=== PATIENT | male | born 1975 | race Caucasian/White ===

== ENCOUNTER 2022-02-21 17:24 | Emergency (ER) | payer BC ==
[2022-02-21 18:11] LABS: #Eosinphils 0.2 thou/uL (0.0-0.7); #Lymphocytes 0.5 thou/uL (1.20-3.40); #Monocytes 0.8 thou/uL (0.11-0.59); #Neutrophils 4.7 thou/uL (1.40-6.50); %Basophils 0.6 % (0.0-1.0); %Eosinophils 3.6 % (0.0-10.0); %Lymphocytes 8.2 % (21.0-51.0); %Neutrophils 74.6 % (42.0-75.0); Hemoglobin 15.6 g/dL (14.0-18.0); Mean Corpuscular HGB CONC 34.4 g/dL (32.0-36.0); Mean Corpuscular Hemoglobin 29.8 pg (27.0-31.0); Mean Corpuscular Volume 86.8 fl (78.0-98.0); Mean Platelet Volume 6.8 fL (7.4-10.4); Platelet Count 206 10x3/uL (130-400); RBC Distribution Width 12.9 % (11.5-14.5); Red Blood Cell (RBC) Count 5.22 mill/uL (4.70-6.10); White Blood Cell (WBC) Count 6.3 10x3/uL (4.8-10.8)
[2022-02-21] MEDS ORDERED: Ibuprofen 800 MG TAB ONE (18:31)
[2022-02-21 18:32] LABS: ALT (SGPT) 25 U/L (8-55); AST (SGOT) 22 U/L (5-34); Albumin 4.4 g/dL (3.5-5.0); Alkaline Phosphatase 62 U/L (40-110); Anion Gap 15 mmol/L (10-20); BUN (Urea Nitrogen) 12 mg/dL (8.9-20.6); Bilirubin, Total 0.3 mg/dL (0.2-1.2); Calc. Creatinine Clearance 0 mL/min (70-130); Calcium 9.6 mg/dL (7.8-10.44); Carbon Dioxide 23 mmol/L (22-29); Chloride 103 mmol/L (98-107); Estimated GFR 60; Globulin 2.9 g/dL (2.4-3.5); Glucose 136 mg/dL (70-105); Protein, Total 7.3 g/dL (6.0-8.3); Sodium 137 mmol/L (136-145)
[2022-02-21 22:11] LABS: SARS-CoV-2 NAA Rapid Test Not Detected (NotDetected)
[2022-02-21 22:12] LABS: Actual Bicarbonate (HCO3a) 21.5 mEq/L (22-28); Analyzer IN Cardio ER; Base Excess (BEa) -1.7 mEq/L (-2.0 to +3.0); CO2 Tension 32.8 mmHg (35.0-45.0); Calcium, Ionized (arterial) 1.17 mmol/L (1.12-1.30); Carboxyhemoglobin (COHb) 0.3 gm% (0.0-3.0); O2 Tension (PaO2), arterial 72.1 mmHg (80.0-100.0); Potassium - ABG Lab 3.71 mmol/L (3.70-5.30); pH, Arterial 7.44 (7.35-7.45)
[2022-02-21 22:29] LABS: Puncture Site RRA
[2022-02-22 15:10] LABS: Ref Lab Test Ordered CARBOXYHEMOGLOBIN; Reference Lab Name LABCORP
== END 2022-02-21 23:01 | disposition home or self-care (01) ==
LOC: ERS 17:24
DX: J10.1 Influenza due to other identified influenza virus with other respiratory manifestations (principal); Z20.822 Contact with and (suspected) exposure to COVID-19
CPT/HCPCS: 36415; 36600; 71045; 80053; 82805; 84484; 85025; 93005